=== PATIENT | female | born 1965 | race Caucasian/White ===

== ENCOUNTER → 2024-01-05 08:50 | Outpatient (REF) | payer OTHER, SELFPAY | LOC: RAD 08:50 | PROVIDERS: ATTENDING PHYSICIAN Podiatrist Foot & Ankle Surgery; FAMILY PHYSICIAN Student in an Organized Health Care Education/Training Program | DX: M84.372A Stress fracture, left ankle, initial encounter for fracture (principal) | CPT/HCPCS: 78315; A9503 ==

== ENCOUNTER → 2024-01-17 07:12 | Outpatient (REF) | payer OTHER, SELFPAY | LOC: RAD 07:12 | PROVIDERS: ATTENDING PHYSICIAN Physician Assistant Medical; FAMILY PHYSICIAN Student in an Organized Health Care Education/Training Program; REFERRING PHYSICIAN Internal Medicine Endocrinology, Diabetes & Metabolism | DX: R22.0 Localized swelling, mass and lump, head (principal) | CPT/HCPCS: 76536 ==

== ENCOUNTER 2024-06-01 14:27 | Emergency (ER) | payer OTHER, SELFPAY ==
[2024-06-01 14:47] VITALS: BP 144/73
--- NOTE | 2024-06-01 17:01 | ED.GENMED ---
History of Present Illness
General
Chief Complaint: Bowel Problem
Time Seen by Provider: 06/01/24 16:39
History of Present Illness
History of Present Illness:
58-year-old female history of IBS, GERD presenting with diffuse abdominal pains with nausea and constipation for the past few days. Patient states that she was diagnosed with Lyme disease at the end of April and completed full course of antibiotics.
Patient states that on Wednesday she developed cold-like symptoms and was diagnosed with COVID. Patient reports decreased appetite. Patient states that since Wednesday she has been having constipation. Patient reports history of constipation for which
she took magnesium, milk of magnesia, miralax and suppository with minimal relief. Pt states she had a very small bowel movement this morning. Pt states she had a small hard bowel movement yesterday. Pt states she is still passing gas. Pt states she
feels nausea and had an episode of vomiting a few days ago, none today.
Past History
Past History
ED Past Medical History: Hypothyroidism and Other (Thyroid cancer, osteoarthritis)
ED Past Surgical History: Other (Thyroidectomy)
Social History
Tobacco: Non-smoker
Phy Exam
Physical Exam
Physical Exam:
General: Alert, no acute distress
Head: NCAT
Eyes: clear conjunctiva
Neck: supple
Cardiac: regular rate and rhythm, no murmur
Lungs: clear to auscultation bilaterally. No wheezes, rales, or rhonchi. Speaking full unlabored sentences. No respiratory distress.
Abdomen: soft, nondistended, nontender. No rebound or guarding. no masses
MSK: no lower extremity edema bilaterally. No deformity
Skin: warm, dry
Neuro: Alert and oriented x3. no focal deficits
Course
Orders/Labs/Results
Orders:
Orders
06/01/24 17:00
Famotidine [Pepcid] 20 mg IV NOW STA
Ondansetron Injectable [Zofran] 4 mg IV NOW STA
06/01/24 17:01
0.9% Sodium Chloride 1000 ml [Nss] 1,000 ml IV BOLUS
06/01/24 17:17
Complete Blood Count/With Diff Urgent
Comprehensive Metabolic Panel Urgent
Lipase Urgent
06/01/24 18:14
Urinalysis Reflex To Culture Urgent
Date Specimen was Collected: 06/01/24
Time Specimen was Collected: 18:02
Abnormal Lab Results
06/01/24 06/01/24
17:17 18:14
MPV 11.1 H fL
(7.4-10.4)
Sodium 134 L mmol/L
(135-145)
Glucose 105 H mg/dl
(70-99)
Urine Ketones Trace A
(Negative)
06/01/24 17:17
06/01/24 17:17
Vital Signs
Initial and Last Documented VS:
Initial Vital Signs
Temp Pulse Resp BP Pulse Ox
98.0 F 91 16 144/73 94
06/01/24 14:47 06/01/24 14:47 06/01/24 14:47 06/01/24 14:47 06/01/24 14:47
Last Documented Vital Signs
Temp Pulse Resp BP Pulse Ox
98.0 F 91 16 135/84 96
06/01/24 14:47 06/01/24 14:47 06/01/24 14:47 06/01/24 17:30 06/01/24 17:36
MDM/Problems Addressed
MDM/Problems Addressed:
58yoF hx IBS presenting with constipation. Pt states she has taken miralax, magnesium, milk of magnesia, and suppository with minimal relief. Pt states she was diagnosed with COVID on Wednesday and has a decreased PO intake since. Pt reports nausea, 1
episode of vomiting a few days ago. Still passing gas. Pt reports diffuse abdominal discomfort greatest in upper abdomen. Pt denies any rectal pain or feeling like needs to have a bowel movement. Abdomen soft nondistended nontender. Ddx includes
constipation, GERD, PUD, viral syndrome. Low suspicion for obstruction given benign exam, continues to pass gas. Labs reviewed, unremarkable. UA negative for UTI. Discussed with patient at bedside. Offered CT abdomen/pelvis, patient declines. Low
suspicion for obstruction given nontender abdomen, no vomiting in a few days, still passing gas. Possible decreased bowel movements secondary to decreased PO intake. Advised to continue bowel regimen. Discussed return precautions including inability
to tolerate liquids, persistent vomiting. Patient expressed verbal understanding. Stable for discharge home.
*Critical Care Note
Total Time (30-74mins, 75-104mins- exclusive of procedures): Not Applicable
ED Attending Note
-
Portions of this chart may have been created with voice recognition software.� Occasional wrong word or��sound alike� substitutions may have occurred due to the inherent limitations of voice recognition software.
Discharge Plan
Departure
Patient Disposition: Home (Routine Discharge)
Date of Disposition: 06/01/24
Time of Disposition: 20:09
Patient with high blood pressure during this ER visit?: Yes
Discharge Problem:
Constipation
Instructions: BLOOD PRESSURE
Prescriptions:
No Action
levothyroxine 150 MCG tablet
125 mcg PO .DAILY EXCEPT SAT MICHAEL
acetaminophen [Tylenol Extra Strength] 500 MG tablet
1,000 mg PO PRN PRN (Reason: pain)
naproxen 500 MG tablet
500 mg PO BID PRN (Reason: pain)
Referrals:
NONE,* [Active] -
Activity Restrictions/Additional Instructions:
Follow up with primary care doctor in 1-2 days
Take Miralax twice daily until have normal bowel movements, then take once daily
Return to the emergency department for persistent vomiting with inability to tolerate liquids, shortness of breath, or new/worsening symptoms
Interventions
Interventions:
*Risk Screen - Suicide Last Done: 06/01/24 14:44
*General Assessment Last Done: 06/01/24 14:44
*Neglect/Abuse Screening Last Done: 06/01/24 14:44
*ED COVID-19 Vaccine History Last Done: 06/01/24 14:44
NR-Vxkzdf-Cpyzpvxlsi Assessment Last Done: 06/01/24 17:35
Discharge Date and Time
Print Language: SPANISH
[2024-06-01] MEDS: NSS 1000 IV (17:28)
[2024-06-01] MEDS: ZOFRAN 4 MG IV (17:28)
[2024-06-01] MEDS: PEPCID 20 MG IV (17:28)
[2024-06-01 17:30] VITALS: BP 135/84
[2024-06-01 17:48] LABS: % Basophils 0.4 % (0-2); % Immature Granulocytes 0.4 % (0-0.5); % Lymphocytes 23.6 % (20.5-51.1); % Monocytes 6.2 % (1.7-9.3); % Neutrophils 69.4 % (42.2-75.2); Absolute Lymphocytes 1.3 10^3/uL (1.2-3.4); Absolute Monocytes 0.3 10^3/uL (0.1-0.6); Absolute Neutrophils 3.8 10^3/uL (1.4-6.5); Hematocrit 37.2 % (37.0-47.0); Mean Corp Hgb Conc. 34.9 g/dL (33.0-37.0); Mean Corpuscular Hgb 30.8 pg (27.0-31.0); Mean Corpuscular Volume 88.2 fL (81.0-99.0); Mean Platelet Volume 11.1 fL (7.4-10.4); Nucleated Red Blood Cells % 0 %; Platelet Count 221 10^3/uL (130-400); Red Blood Cell Count 4.22 10^6/uL (4.20-5.40); White Blood Cell Count 5.5 10^3/uL (4.8-10.8)
[2024-06-01 17:56] LABS: ALT (SGPT) 24 U/L (0-35); AST (SGOT) 32 U/L (14-36); Albumin 4.2 g/dl (3.5-5.0); Alkaline Phosphatase 86 U/L (38-126); Blood Urea Nitrogen 13 mg/dl (7-17); Calcium 8.8 mg/dl (8.4-10.2); Carbon Dioxide 25 mmol/L (22-30); Chloride 100 mmol/L (98-107); Glucose 105 mg/dl (70-99); Lipase 123 U/L (23-300); Sodium 134 mmol/L (135-145); Total Bilirubin 0.5 mg/dl (0.2-1.3); Total Protein 6.4 g/dl (6.3-8.2); eGFR > 60.00
[2024-06-01 18:27] LABS: Urine Albumin Negative (Neg - Trace); Urine Bilirubin Negative (Negative); Urine Character Clear (Clear); Urine Color Yellow; Urine Glucose Negative (Negative); Urine Ketone Trace (Negative); Urine Leukocyte Negative (Negative); Urine Nitrite Negative (Negative); Urine Occult Blood Negative (Negative); Urine Urobilinogen Negative (Neg - 1+)
== END 2024-06-01 20:40 | disposition home or self-care (01) ==
LOC: EMR 14:27
PROVIDERS: EMERGENCY PHYSICIAN Emergency Medicine; FAMILY PHYSICIAN Student in an Organized Health Care Education/Training Program
DX: K59.00 Constipation, unspecified (principal); R11.0 Nausea; R10.9 Unspecified abdominal pain; R03.0 Elevated blood-pressure reading, without diagnosis of hypertension; U07.1 COVID-19; K58.9 Irritable bowel syndrome, unspecified; E03.9 Hypothyroidism, unspecified; K21.9 Gastro-esophageal reflux disease without esophagitis; M19.90 Unspecified osteoarthritis, unspecified site; Z85.850 Personal history of malignant neoplasm of thyroid
CPT/HCPCS: 99284; 96374; 96375; 96361; 80053; 81003; 83690; 85025

== ENCOUNTER → 2025-05-07 08:47 | Outpatient (REF) | payer OTHER, SELFPAY | LOC: RAD 08:47 | PROVIDERS: ATTENDING PHYSICIAN Student in an Organized Health Care Education/Training Program; FAMILY PHYSICIAN Student in an Organized Health Care Education/Training Program | DX: K59.00 Constipation, unspecified (principal); R10.11 Right upper quadrant pain | CPT/HCPCS: 74160; Q9967 ==

== ENCOUNTER → 2025-05-24 19:21 | Outpatient (REF) | payer OTHER, SELFPAY | LOC: MRI 3T 19:21 | PROVIDERS: ATTENDING PHYSICIAN Student in an Organized Health Care Education/Training Program; FAMILY PHYSICIAN Student in an Organized Health Care Education/Training Program | DX: K76.89 Other specified diseases of liver (principal) | CPT/HCPCS: 74183; A9575 ==

== ENCOUNTER → 2025-07-10 09:21 | Outpatient (REF) | payer OTHER, SELFPAY | LOC: HWRAD 09:21 | PROVIDERS: ATTENDING PHYSICIAN Internal Medicine Gastroenterology; FAMILY PHYSICIAN Student in an Organized Health Care Education/Training Program | DX: K76.0 Fatty (change of) liver, not elsewhere classified (principal) | CPT/HCPCS: 76700 ==

== ENCOUNTER → 2025-08-29 13:03 | Outpatient (REF) | payer OTHER, SELFPAY | LOC: RAD 13:03 | PROVIDERS: ATTENDING PHYSICIAN Student in an Organized Health Care Education/Training Program | DX: M79.662 Pain in left lower leg (principal) | CPT/HCPCS: 93971 ==